=== PATIENT | male | born 1970 | race Caucasian/White ===

== ENCOUNTER → 2024-03-27 | Outpatient (CLI) | payer OTHER, SELFPAY ==
--- NOTE | 2024-03-27 09:03 | XR_ITS ---
Examination: PA lateral chest 2 views TECHNIQUE: Upright PA lateral chest 2 views Exam date and time: March 27, 2024 at 0910 hours Comparison July 30, 2023 INDICATIONS: Preop shoulder surgery, smoking history 10 years FINDINGS: Normal heart size Lungs are clear. Moderate osteopenia Mild hyperexpansion IMPRESSION: Mild hyperexpansion No pneumonia or pulmonary edema
[2024-03-27 10:28] LABS: Basophils # (Auto) 0.1 Thou/mm3 (0.0-0.2); Basophils % (Auto) 1 % (0-2.5); Eosinophils # (Auto) 0.3 Thou/mm3 (0.0-0.5); Eosinophils % (Auto) 2 % (0-10); Hematocrit 48.3 % (41.0-53.0); Hemoglobin 16.9 g/dL (13.5-16.0); Immature Granulocytes % (Auto) 0 % (0-0); Immature Granulocytes Auto 0.05 Thou/mm3 (0.00-0.00); Lymphocytes % (Auto) 31 % (10-50); Mean Corpuscular Hemoglobin 33.1 pg (25.0-35.0); Mean Corpuscular Volume 95 fL (80-100); Monocytes # (Auto) 0.8 Thou/mm3 (0.0-0.8); Monocytes % (Auto) 6 % (0-12); Neutrophils # (Auto) 7.7 Thou/mm3 (1.8-7.7); Neutrophils % (Auto) 60 % (37-80); Nucleated Red Blood Cell % 0 /100 WBC (0); Platelet Count 284 Thou/mm3 (140-440); RDW Standard Deviation 43.6 fL (35.1-43.9); White Blood Count 12.9 Thou/mm3 (3.8-10.6)
[2024-03-27 10:41] LABS: Anion Gap 4 (7-16); Blood Urea Nitrogen 10 mg/dL (9-23); Carbon Dioxide 28.6 mMol/L (20.0-31.0); Chloride 104 mMol/L (98-107); Creatinine (Component) 1.1 mg/dL (0.6-1.3); Potassium 4.8 mMol/L (3.4-5.1); Sodium 137 mMol/L (136-145)
[2024-03-27 10:42] LABS: Alanine Aminotransferase 61 U/L (10-49); Albumin, Serum 5.1 gm/dL (3.5-5.0); Alkaline Phosphatase 96 U/L (46-116); Aspartate Amino Transferase 36 U/L (0-34); BUN/Creatinine Ratio 9 Ratio (12-20); Bilirubin,Total 0.7 mg/dL (0.3-1.2); Calcium 10.6 mg/dL (8.3-10.6); Calcium (Corrected) 10.6 mg/dL (8.5-10.1); Globulin 2.5 gm/dL (2.3-3.5); Glucose 93 mg/dL (74-106); Osmolality,Calculated 272 (275-295); Total Protein 7.6 gm/dL (5.7-8.2); eGFR > 60 See Note
[2024-03-27 10:48] LABS: Glucose Estimated Average 100 mg/dL (80-131); Hemoglobin A1C 5.1 % Hgb (4.8-6.0)
== END | disposition home or self-care (01) ==
PROVIDERS: PCP Family Medicine; Referring Provider Nurse Practitioner Family; Visit Provider Nurse Practitioner Family
DX: Z01.818 Encounter for other preprocedural examination (principal); R91.8 Other nonspecific abnormal finding of lung field
CPT/HCPCS: 36415; 71046; 80053; 83036; 85025

== ENCOUNTER → 2024-06-20 | Outpatient (CLI) | payer OTHER, SELFPAY ==
[2024-06-20 12:54] LABS: Basophils # (Auto) 0.1 Thou/mm3 (0.0-0.2); Basophils % (Auto) 1 % (0-2.5); Eosinophils # (Auto) 0.2 Thou/mm3 (0.0-0.5); Eosinophils % (Auto) 1 % (0-10); Hematocrit 45.3 % (41.0-53.0); Hemoglobin 15.9 g/dL (13.5-16.0); Immature Granulocytes % (Auto) 0 % (0-0); Immature Granulocytes Auto 0.05 Thou/mm3 (0.00-0.00); Lymphocytes # (Auto) 3.8 Thou/mm3 (1.0-4.8); Lymphocytes % (Auto) 27 % (10-50); Mean Corpuscular HGB Conc 35.1 g/dl (31.0-37.0); Mean Corpuscular Hemoglobin 32.5 pg (25.0-35.0); Mean Corpuscular Volume 93 fL (80-100); Monocytes # (Auto) 0.7 Thou/mm3 (0.0-0.8); Monocytes % (Auto) 5 % (0-12); Neutrophils # (Auto) 9.2 Thou/mm3 (1.8-7.7); Neutrophils % (Auto) 65 % (37-80); Nucleated Red Blood Cell % 0 /100 WBC (0); Platelet Count 286 Thou/mm3 (140-440); RDW Standard Deviation 42.5 fL (35.1-43.9); Red Blood Count 4.89 Miln/mm3 (4.50-5.90); White Blood Count 14.1 Thou/mm3 (3.8-10.6)
[2024-06-20 13:13] LABS: Anion Gap 9 (7-16); BUN/Creatinine Ratio 12 Ratio (12-20); Blood Urea Nitrogen 13 mg/dL (9-23); Calcium 10.5 mg/dL (8.3-10.6); Carbon Dioxide 27.7 mMol/L (20.0-31.0); Chloride 104 mMol/L (98-107); Creatinine (Component) 1.1 mg/dL (0.6-1.3); Glucose 93 mg/dL (74-106); Osmolality,Calculated 281 (275-295); Potassium 4.7 mMol/L (3.4-5.1); Sodium 141 mMol/L (136-145); eGFR > 60 See Note
== END | disposition home or self-care (01) ==
LOC: COPL 11:40
PROVIDERS: PCP Family Medicine; Referring Provider Family Medicine; Visit Provider Family Medicine
DX: Z01.818 Encounter for other preprocedural examination (principal); S43.492D Other sprain of left shoulder joint, subsequent encounter; X58.XXXD Exposure to other specified factors, subsequent encounter
CPT/HCPCS: 36415; 80048; 85025

== ENCOUNTER 2024-10-30 01:25 | Emergency (ER) | payer OTHER, SELFPAY ==
--- NOTE | 2024-10-30 01:26 | EKG_ITS ---
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
[2024-10-30 01:28] VITALS: BMI 27.9
[2024-10-30 01:42] VITALS: BP 151/103; PULSE 66; RESP 20; TEMP 36.9; O2SAT 96
--- NOTE | 2024-10-30 01:54 | XR_ITS ---
Examination: PA chest single view TECHNIQUE: Upright PA chest single view Date and time: October 30, 2024 0157 hours Comparison March 27, 2024 INDICATIONS: Onset chest pain today. FINDINGS: Normal heart size. Lungs are clear. Mild osteopenia IMPRESSION: No active disease.
--- NOTE | 2024-10-30 01:54 | PD.EDRME ---
Rapid Medical Screening Exam RME Arrival date/time: 10/30/24 01:25 54M with history of HTN presents to ED with 2 hours of CP that radiates to jaw/teeth. Patient took a [place] w/o relief. Chief Complaint: Chest Pain Vital signs: Vital Signs Temperature 98.5 F 10/30/24 01:42 Pulse Rate 66 10/30/24 01:42 Respiratory Rate 20 10/30/24 01:42 Blood Pressure 151/103 H 10/30/24 01:42 Pulse Oximetry (%) 96 10/30/24 01:42 Oxygen Delivery Method Room Air 10/30/24 01:42
--- NOTE | 2024-10-30 03:17 | PC.NURSE ---
WE HAD DOWN TIME FROM [id number].
[2024-10-30 03:37] LABS: Basophils # (Auto) 0.1 Thou/mm3 (0.0-0.2); Basophils % (Auto) 1 % (0-2.5); Eosinophils # (Auto) 0.3 Thou/mm3 (0.0-0.5); Eosinophils % (Auto) 3 % (0-10); Hematocrit 42.2 % (41.0-53.0); Hemoglobin 15.2 g/dL (13.5-16.0); Immature Granulocytes Auto 0.03 Thou/mm3 (0.00-0.00); Lymphocytes # (Auto) 2.9 Thou/mm3 (1.0-4.8); Lymphocytes % (Auto) 28 % (10-50); Mean Corpuscular HGB Conc 36.0 g/dl (31.0-37.0); Mean Corpuscular Hemoglobin 32.0 pg (25.0-35.0); Mean Corpuscular Volume 89 fL (80-100); Monocytes # (Auto) 0.9 Thou/mm3 (0.0-0.8); Monocytes % (Auto) 8 % (0-12); Neutrophils # (Auto) 6.3 Thou/mm3 (1.8-7.7); Neutrophils % (Auto) 60 % (37-80); Nucleated Red Blood Cell # 0.00 Thou/mm3 (0.00-0.00); Nucleated Red Blood Cell % 0 /100 WBC (0); Platelet Count 182 Thou/mm3 (140-440); RDW Standard Deviation 40.5 fL (35.1-43.9); Red Blood Count 4.75 Miln/mm3 (4.50-5.90); White Blood Count 10.5 Thou/mm3 (3.8-10.6)
[2024-10-30 03:52] LABS: INR 1.0 (0.9-1.3); Partial Thromboplastin Time 28.0 Seconds (22.0-36.0); Prothrombin Time 10.5 Seconds (9.0-12.2)
[2024-10-30 03:58] VITALS: BP 127/87; PULSE 56; RESP 18; TEMP 36.8; O2SAT 95
[2024-10-30 04:01] LABS: Alanine Aminotransferase 37 U/L (10-49); Albumin, Serum 4.4 gm/dL (3.5-5.0); Albumin/Globulin Ratio 1.8 (1.2-2.2); Alkaline Phosphatase 91 U/L (46-116); Anion Gap 10 (7-16); Aspartate Amino Transferase 25 U/L (0-34); BUN/Creatinine Ratio 7 Ratio (12-20); Bilirubin,Total 0.3 mg/dL (0.3-1.2); Blood Urea Nitrogen 8 mg/dL (9-23); Calcium 9.1 mg/dL (8.3-10.6); Calcium (Corrected) 9.1 mg/dL (8.5-10.1); Carbon Dioxide 23.2 mMol/L (20.0-31.0); Chloride 109 mMol/L (98-107); Creatinine (Component) 1.1 mg/dL (0.6-1.3); Estimated Creatinine Clearance 88.6 mL/min (>60); Globulin 2.5 gm/dL (2.3-3.5); Glucose 101 mg/dL (74-106); Osmolality,Calculated 281 (275-295); Potassium 3.8 mMol/L (3.4-5.1); Sodium 142 mMol/L (136-145); Total Protein 6.9 gm/dL (5.7-8.2); Troponin I < 0.002 ng/mL (0.0-0.045); eGFR > 60 See Note
[2024-10-30 05:35] LABS: Troponin I < 0.002 ng/mL (0.0-0.045)
[2024-10-30 06:34] VITALS: BP 126/90; PULSE 97; RESP 18; TEMP 36.9; O2SAT 98
--- NOTE | 2024-10-30 06:44 | EDNOTE_ITS ---
<Statement entered by Carmen Thornton MD - 11/08/24 19:38> As co-signing physician, I was present and available for consult prn. I concur with the plan and care as documented by the midlevel provider. ED Chest Pain RME/HPI General Chief Complaint: Chest Pain Stated Complaint: CHEST PAIN,JAW PAIN Time Seen by Provider: 10/30/24 06:32 Source: patient Arrival date/time: 10/30/24 01:25 54-year-old male with a history of hypertension presents to the emergency room with a chief complaint of chest pain that radiates to his jaw x 5 hours Mode of arrival: ambulatory Limitations: no limitations RME / HPI RME / HPI narrative: 10/30/24 01:25 54M with history of HTN presents to ED with 2 hours of CP that radiates to jaw/teeth. Patient took a [place] w/o relief. Related Data Previous Rx's ?Medication ?Instructions ?Recorded Hydrocodone/Acetaminophen * (NORCO 1 tab PO Q6H PRN PA IN #14 tabs 01/09/16 5/325 *) doxycycline hyclate 100 mg capsule 100 mg PO BID #20 c aps 08/08/22 benzonatate 100 mg capsule 100 mg PO TID PRN cough #14 caps 07/30/23 fluticasone propionate 50 1 spray intranasal BID #16 g wilma 07/30/23 mcg/actuation nasal spray,suspension (Allergy Relief (fluticasone)) Allergies Allergy/AdvReac Type Severity Reaction Status Date / Time No Known Allergies Allergy Verified 10/30/24 01:26 Review of Systems Review of Systems Systems Reviewed: All systems reviewed, normal except as documented Constitutional Constitutional: Reports system reviewed and no additional complaints, except as documented, Denies fatigue, Denies fever(s), Denies headache(s) and Denies weakness Eyes Eyes: Reports system reviewed and no additional complaints, except as documented, Denies blurry vision and Denies change in vision ENT Ears, Nose, Mouth, and Throat: Reports system reviewed and no additional complaints, except as documented, Denies otalgia, Denies headache(s), Denies nasal congestion, Denies throat swelling and Denies vertigo Cardiovascular Cardiovascular: Reports system reviewed and no additional complaints, except as documented, Reports chest pain, Reports chest pain at rest, Denies dyspnea, Denies dyspnea on exertion and Reports radiating jaw, neck or arm pain Respiratory Respiratory: Reports system reviewed and no additional complaints, except as documented, Denies chest congestion, Denies cough, Denies dyspnea, Denies dyspnea on exertion and Denies wheezing Gastrointestinal Gastrointestinal: Reports system reviewed and no additional complaints, except as documented, Denies abdominal pain, Denies cramping, Denies nausea and Denies vomiting Genitourinary Genitourinary: Reports system reviewed and no additional complaints, except as documented, Denies dysuria and Denies hematuria Musculoskeletal Musculoskeletal: Reports system reviewed and no additional complaints, except as documented and Denies back pain Integumentary/Breasts Skin/Breast: Reports system reviewed and no additional complaints, except as documented and Denies wounds Neurologic Neurologic: Reports system reviewed and no additional complaints, except as documented, Denies confusion, Denies headache(s), Denies lack of coordination, Denies vertigo and Denies weakness Psychiatric Psychiatric: Reports system reviewed and no additional complaints, except as documented, Denies anxiety, Denies confusion, Denies depression, Denies paranoia, Denies suicidal ideation and Denies tactile hallucinations Endocrine Endocrine: Reports system reviewed and no additional complaints, except as documented and Denies fatigue Hematologic/Lymphatic Hematologic/Lymphatic: Reports system reviewed and no additional complaints, except as documented and Denies lymphadenopathy Allergic/Immunologic Allergic/Immunologic: Reports system reviewed and no additional complaints, except as documented, Denies throat swelling, Denies urticaria and Denies wheezing Past Medical History Past Medical History CARDIAC: Negative Congestive Heart Failure RESPIRATORY: Negative Chronic Obstructive Pulmonary Disease (COPD) GENITOURINARY: Negative Renal Disease ENDOCRINE: Negative Diabetes Mellitus Type 1 or Diabetes Mellitus Type 2 Social History SMOKING STATUS: Current every day smoker ED Exam General Limitations: Present no limitations General appearance: Present alert and in no apparent distress Head Head exam: Present atraumatic Eye Eye exam: Present normal appearance, PERRL and EOMI ENT ENT exam: Present normal exam, normal oropharynx and mucous membranes moist Neck Neck exam: Present normal inspection, full ROM and trachea midline Chest Chest inspection: Present normal inspection and symmetric chest wall rise Respiratory Respiratory exam: Present normal lung sounds bilaterally; Absent respiratory distress, wheezes, stridor, accessory muscle use or prolonged expiratory phase Cardiovascular Cardiovascular exam: Present regular rate, normal rhythm, normal heart sounds, +S1 and +S2; Absent bradycardia, tachycardia, irregular rhythm, systolic murmur, diastolic murmur, rubs, gallop, clicks or JVD Abdominal Exam Abdominal exam: Present soft and normal bowel sounds; Absent tenderness Extremities Exam Extremities exam: Present normal inspection and full ROM Back Exam Back exam: Present normal inspection and full ROM Neurological Exam Neurological exam: Present alert, oriented X3 and CN II-XII intact Psychiatric Psychiatric exam: Present normal affect and normal mood Skin Skin exam: Present warm, dry, intact and normal color Course Quality Measures none Orders Category Date Time Status EKG (ED ONLY) *Do not use* NOW Care 10/30/24 01:26 Completed EKG (ED Only) Stat Exams 10/30/24 01:26 Draft XR chest 1V portable Stat Exams 10/30/24 01:54 Taken CBC Stat Lab 10/30/24 02:06 Completed Comprehensive Metabolic Panel Stat Lab 10/30/24 02:06 Completed Partial Thromboplastin Time Stat Lab 10/30/24 02:06 Completed Prothrombin Time with INR Stat Lab 10/30/24 02:06 Completed Troponin I Stat Lab 10/30/24 02:06 Completed Troponin I Stat Lab 10/30/24 05:01 Completed Aspirin Med 10/30/24 01:54 Discontinued 325 mg PO X1 ONE Vital Signs Vital signs: Vital Signs Temperature 98.5 F 10/30/24 01:42 Pulse Rate 66 10/30/24 01:42 Respiratory Rate 20 10/30/24 01:42 Blood Pressure 151/103 H 10/30/24 01:42 Pulse Oximetry (%) 96 10/30/24 01:42 Oxygen Delivery Method Room Air 10/30/24 01:42 Chest Pain MDM Narrative MDM Narrative:: 54-year-old male with a history of hypertension presents to the emergency room with a chief complaint of chest pain that radiates to his jaw x 5 hours Patient is hemodynamically stable in no apparent distress During my reevaluation the patient denies any chest pain and states his symptoms have now resolved. Lung sounds are clear bilaterally the patient has a strong and regular rhythm S1 and S2 noted no murmurs no JVD CBC CMP are within normal limits. EKG shows normal sinus rhythm at [address] deviation. Troponin was negative repeat delta [place] was also negative Patient was discharged and educated to follow-up with primary care provider in the next 24 to 48 hours and return to the emergency room for any evidence of worsening signs or symptoms Patient data External records reviewed:: [facility] previous records Clinical information provided by:: patient Social determinants that could affect healthcare access:: none Patient has the following chronic illnesses:: No chronic illness How is presenting disease/condition affected by chronic disease/condition?: no chronic disease Evaluation data The following diagnostics were reviewed and interpreted by me:: lab results and radiology exam(s) Lab and/or radiology exams considered but not ordered:: Labs and radiology exams considered and ordered Interpretation Summary: N/A Medications / Prescriptions Medications or Prescriptions considered but not ordered:: Medication given Medication administrations:: Medication Administration History Discontinued Medications Aspirin (Aspirin 325 Mg Tablet) 325 mg PO X1 ONE Stop: 10/30/24 01:55 Last Admin: 10/30/24 02:01 Dose: 325 mg Documented By: CVL Medication given Consultations Consultation(s) initiated? (list below): No Diagnosis Chest Pain Differential Diagnosis: stable angina, atypical chest pain, st elevation myocardial infarction, costochondritis and chest pain Most likely diagnosis given after review of the tests above:: Chest pain Admission Indicated Admission indicated?: not indicated Admission Request Was there a request for admission?: No Disposition Plan Disposition Plan: Discharge Discharge Attestation Discharge Attestation: The patient and all family members were given an opportunity to ask questions and understood the discharge instructions. Discharge instructions specifically effects, indications for sooner follow up or return to the emergency department, and the expected course of current diagnosis. Patient condition: Stable Discharge Plan Plan Patient Disposition: HOME (Self Care) Discharge Disposition comment: Stable Prescriptions/Referrals Prescriptions/Med Rec: No Action Hydrocodone/Acetaminophen * (NORCO 5/325 *) 1 TAB tablet 1 tab PO Q6H PRN (Reason: PAIN) Qty: 14 0RF doxycycline hyclate 100 mg capsule 100 mg PO BID Qty: 20 0RF fluticasone propionate [Allergy Relief (fluticasone)] 50 mcg/actuation spray,suspension 1 spray intranasal BID Qty: 16 0RF Rx Instructions: administer into each nostril benzonatate 100 mg capsule 100 mg PO TID PRN (Reason: cough) Qty: 14 0RF Referrals: No Primary/Family,Physician [Primary Care Provider] - In 1 week Problem List Clinical Impression: Chest pain Patient/Caregiver Discharge Instructions Education Materials: ED Chest Pain, Noncardiac Additional Instructions: Please follow-up with your primary care provider in the next 24 to 48 hours Your cardiac examination was within normal limits today. For any evidence of worsening signs or symptoms return the emergency room immediately Print Language: Welsh Stand Alone Forms: [place] Award Info., Patient Portal Info Letter PA/JOANN Supervising Physician KARRIE/JOANN Supervising Physician: Dr. THORNTON
[2024-10-30 06:49] VITALS: RESP 16
== END 2024-10-30 06:50 | disposition home or self-care (01) ==
PROVIDERS: Physician Assistant; Emergency Provider Emergency Medicine
DX: R07.9 Chest pain, unspecified (principal); R94.31 Abnormal electrocardiogram [ECG] [EKG]; I10 Essential (primary) hypertension; F17.210 Nicotine dependence, cigarettes, uncomplicated
CPT/HCPCS: 36415; 71045; 80053; 84484; 85025; 85610; 85730; 93005; 99283; A9270